=== PATIENT | female | born 1950 | race Two or more races ===

== ENCOUNTER 2023-02-15 17:04 | Emergency (ER) | payer MEDICARE ==
[~2023-02-15] VITALS: Ht 167.6 cm; Wt 80.0 kg
[2023-02-15 17:57] LABS: Basophils # (auto) 0.1 10 ^3/uL (0-0.2); Basophils % (auto) 0.5 % (0.0-2.0); Eosinophils # (auto) 0.1 10 ^3/uL (0-0.8); Eosinophils % (auto) 0.5 % (0.0-7.0); Hematocrit 40.6 % (36.0-46.0); Hemoglobin 13.9 g/dL (12.2-16.2); Lymphocytes # (auto) 1.7 10 ^3/uL (0.4-5.4); Lymphocytes % (auto) 13.2 % (10.0-50.0); Mean Corpuscular Hemoglobin 33.1 pg (28.0-32.0); Mean Corpuscular Hgb Conc. 34.2 g/dL (32.0-36.0); Mean Corpuscular Volume 96.8 fL (80.0-100.0); Monocytes # (auto) 1.2 10 ^3/uL (0-1.3); Monocytes % (auto) 8.9 % (0.0-12.0); Neutrophils % (auto) 76.9 % (37.0-80.0); Nucleated Red Blood Cells % 0.2 %; Red Cell Distribution Width 13.1 % (11.8-14.3)
[2023-02-15 18:11] LABS: INR 1.08 (0.9-1.15); Partial Thromboplastin Time 25.4 SEC (24.5-34.5); Prothrombin Time 11.3 sec (9.3-11.8)
[2023-02-15 18:12] VITALS: PULSE 73; RESP 14; O2SAT 96
[2023-02-15 18:14] LABS: Alanine Aminotransferase 21 U/L (7-40); Albumin 4.1 g/dL (3.2-4.8); Alkaline Phosphatase 70 U/L (46-116); Anion Gap 8 (5-15); Aspartate Aminotransferase 20 U/L (13-40); BUN/Creatinine Ratio 18.6 (10.0-20.0); Blood Urea Nitrogen 19 mg/dL (9-23); Carbon Dioxide 25 mmol/L (20-30); Chloride 107 mmol/L (98-107); Glucose 108 mg/dL (74-106); Potassium 3.5 mmol/L (3.5-5.1); Sodium 140 mmol/L (136-145)
[2023-02-15 19:30] VITALS: BP 113/39; RESP 18; O2SAT 97
[2023-02-15 20:22] VITALS: PULSE 57
[2023-02-15] MEDS ORDERED: LACTATED RINGER'S 1,000 ML IV ONE (21:00)
[2023-02-15 21:43] LABS: Magnesium 1.4 mg/dL (1.6-2.6)
== END 2023-02-15 21:59 | disposition left against medical advice (07) ==
LOC: EDBD 17:04 → ER 17:04
DX: E86.0 Dehydration (principal); R55 Syncope and collapse; R42 Dizziness and giddiness; R53.1 Weakness; Z85.3 Personal history of malignant neoplasm of breast; Z98.890 Other specified postprocedural states
CPT/HCPCS: 36415; 70450; 71045; 72125; 80053; 83690; 83735; 85025; 85610; 85730; 93005